=== PATIENT | female | born 1945 | race Caucasian/White ===

== ENCOUNTER 2024-11-26 08:48 | Outpatient (CLI) | payer MEDICARE, BC, MEDICAID ==
[2024-11-26] MEDS ORDERED: GADOTERATE MEGLUMINE 7.5 MMOL/15 ML VIAL IV ONE (15:56)
--- NOTE | 2024-11-26 16:36 | RADIOLOGY REPORT ---
PROCEDURE: MR MRI HEAD INDICATION: PAIN, ABNORMALITIES OF GAIT/MOBILITY EXAM DATE: 11/26/2024 09:26 AM COMPARISON: None TECHNIQUE: MRI of the brain with and without 10 cc clariscan intravenous contrast. FINDINGS: Limited by motion artifact. Diffusion weighted images of the brain demonstrate no evidence of acute infarction. There is no evidence of acute intracranial hemorrhage, extra-axial collection, mass effect, midline s hift, herniation or hydrocephalus. Izne-df-zmxiabhi cerebral atrophy. Xbxh-sc-awibewgs changes of chronic microvascular ischemic disease. No abnormal enhancement. There are no signal abnormalities on the susceptibility weighted sequences. The major vascular flow voids are present. The visualized paranasal sinuses and mastoid air cells are clear. The surrounding soft tissues and o sseous structures are unremarkable. IMPRESSION: 1. No evidence of acute infarction, intracranial hemorrhage, mass effect or hydrocephalus. Mild-to-mo derate cerebral atrophy. Iqui-jc-fijbpbfe changes of chronic microvascular ischemic disease. No abn ormal enhancement. HS:Y
== END 2024-11-26 23:59 | disposition home or self-care (01) ==
LOC: MRI 08:48
PROVIDERS: ATTEND Family Medicine
DX: I67.89 Other cerebrovascular disease (principal); I25.85 Chronic coronary microvascular dysfunction; R26.89 Other abnormalities of gait and mobility; R52 Pain, unspecified; G31.9 Degenerative disease of nervous system, unspecified
CPT/HCPCS: 70553; A9575